=== PATIENT | female | born 1945 | race Caucasian/White ===

== ENCOUNTER 2018-02-03 12:13 | Outpatient (CLI) | payer MEDICARE, SELFPAY ==
--- NOTE | 2018-02-03 11:11 | DI.RAD_ITS ---
SYMPTOM/DIAGNOSIS: FOOT PAIN M79.671 RIGHT FOOT: There is no evidence of a fracture or dislocation. Mild degenerative changes involving interphalangeal joints are identified. Minimal DJD involving the intertarsal and tarsal metatarsal joints are noted and there is a tiny calcaneal spur
== END 2018-02-03 12:33 ==
PROVIDERS: PCP Family Medicine; Visit Provider Internal Medicine
DX: M79.671 Pain in right foot (principal); M19.071 Primary osteoarthritis, right ankle and foot; M77.31 Calcaneal spur, right foot
CPT/HCPCS: 73630

== ENCOUNTER 2018-05-25 12:40 | Outpatient (CLI) | payer MEDICARE, SELFPAY ==
[2018-05-25 14:05] LABS: Anion Gap 8.1 mmol/L (3-11); BUN 21 mg/dL (7-18); CO2 28.9 mmol/L (21.0-32.0); CREATININE 0.94 mg/dL (0.55-1.02); Calcium 9.4 mg/dL (8.5-10.1); Chloride 104 mmol/L (98-107); Cholesterol 192 mg/dL (50-200); Estimated GFR 58.21 (mL/min/1.73m2); Glucose 87 mg/dL (70-100); HDL Cholesterol 71 mg/dL (40-60); LDL CHOLESTEROL 84 mg/dL (<100); Potassium 3.7 mmol/L (3.5-5.1); Sodium 141 mmol/L (136-145); Triglyceride 103 mg/dL (30-150)
== END 2018-05-25 13:00 ==
PROVIDERS: PCP Internal Medicine; Visit Provider Internal Medicine
DX: I10 Essential (primary) hypertension (principal); R73.01 Impaired fasting glucose; E11.9 Type 2 diabetes mellitus without complications
CPT/HCPCS: 36415; 80048; 80061; 83721

== ENCOUNTER 2019-10-31 01:32 | Outpatient (CLI) | payer MEDICARE, SELFPAY ==
[2019-10-31 09:57] LABS: Anion Gap 8.7 mmol/L (3-11); BUN 20 mg/dL (7-18); CO2 27.3 mmol/L (21.0-32.0); CREATININE 1.08 mg/dL (0.55-1.02); Calculated LDL 167 mg/dL (<100); Chloride 102 mmol/L (98-107); Cholesterol 265 mg/dL (<200); Estimated GFR 49.33 (mL/min/1.73m2); Glucose 99 mg/dL (74-106); HDL Cholesterol 53 mg/dL (40-60); Potassium 4.3 mmol/L (3.5-5.1); Sodium 138 mmol/L (136-145); Triglyceride 225 mg/dL (<150)
== END 2019-10-31 01:52 ==
PROVIDERS: PCP Internal Medicine; Visit Provider Internal Medicine
DX: I10 Essential (primary) hypertension (principal)
CPT/HCPCS: 36415; 80048; 80061

== ENCOUNTER 2019-11-08 01:38 | Outpatient (CLI) | payer MEDICARE, SELFPAY ==
--- NOTE | 2019-11-08 11:15 | DI.DEXA_ITS ---
EXAM: XR DEXA BONE DENSITY W/WO FABI CLINICAL HISTORY: screening for osteoporosis, Z78.0 TECHNIQUE: COMPARISON: No exams were available for comparison FINDINGS: Lateral Spine Image: Unremarkable. No compression deformities identified. Left hip: Total T-Score: -1.8 Total Z-Score: 0.1 T- and Z-scores: Findings consistent with osteopenia and an increased fracture risk. Lumbar Spine: Total T-Score: -1.9 Total Z-Score: 0.5 T- and Z-scores: Findings consistent with osteopenia and increased fracture risk. IMPRESSION: No evidence of osteoporosis.
== END 2019-11-08 01:58 ==
PROVIDERS: PCP Internal Medicine; Visit Provider Internal Medicine
DX: M85.88 Other specified disorders of bone density and structure, other site (principal); Z78.0 Asymptomatic menopausal state
CPT/HCPCS: 77080

== ENCOUNTER 2019-12-06 01:12 | Outpatient (CLI) | payer MEDICARE, SELFPAY ==
--- NOTE | 2019-12-06 06:45 | DI.MAMMO_ITS ---
EXAM: MAMMO SCREENING CLINICAL HISTORY: screening, TECHNIQUE: Mammograms were interpreted according to the usual protocol including computer analysis w [employer] CAD system, tomosynthesis and C-view imaging. COMPARISON: 2009 FINDINGS: The breasts are composed of heterogeneously dense fibroglandular densities, Breast Density category C . No suspicious masses or suspicious microcalcifications are seen. Vascular calcifications are noted. No skin thickening or abnormal axillary lymph nodes are seen. There has been no significant change from prior exam. IMPRESSION: BI-RADS Category 1: Negative mammogram. Yearly screening mammography is recommended. Breast Density Category C, heterogeneously dense tissue which decreases the sensitivity of the mammog toma. The mammogram demonstrates the patient's breast tissue is dense. Dense breast tissue is very common a nd is not abnormal but dense breast tissue can make it harder to find cancer on a mammogram. Also, de nse breast tissue may increase breast cancer risk. This information about the result of the mammogram report was provided to the patient to raise their awareness. Use this report when you speak with the patient about their risks for breast cancer, which includes their family history. At that time, you may recommend additional screening tests (Ultrasound or MRI) as they might be useful based on their r isk. A negative radiographic report should not delay biopsy if a dominant or clinically suspicious mass is present. Up to ten percent of cancers are not identified on mammography. A negative report may reinforce clinical impression. Adenosis and dense breasts may obscure an underlying neoplasm. False positive reports average 6 to 10%.
== END 2019-12-06 01:32 ==
PROVIDERS: PCP Internal Medicine; Visit Provider Internal Medicine
DX: Z12.31 Encounter for screening mammogram for malignant neoplasm of breast (principal); R92.2 Inconclusive mammogram; R92.1 Mammographic calcification found on diagnostic imaging of breast
CPT/HCPCS: 77063; 77067

== ENCOUNTER 2021-01-09 02:49 | Outpatient (CLI) | payer MEDICARE, SELFPAY ==
[2021-01-09 09:04] LABS: Anion Gap 9.8 mmol/L (3-11); BUN 24 mg/dL (7-18); CO2 28.2 mmol/L (21.0-32.0); CREATININE 1.1 mg/dL (0.55-1.02); Calcium 9.5 mg/dL (8.5-10.1); Calculated LDL 126 mg/dL (<100); Chloride 106 mmol/L (98-107); Cholesterol 208 mg/dL (<200); Estimated GFR 48.16 (mL/min/1.73m2); Glucose 99 mg/dL (74-106); HDL Cholesterol 56 mg/dL (40-60); Potassium 4.1 mmol/L (3.5-5.1); Sodium 144 mmol/L (136-145); Triglyceride 130 mg/dL (<150)
== END 2021-01-09 02:50 | disposition home or self-care (01) ==
LOC: LBO 02:49
PROVIDERS: PCP Internal Medicine; Visit Provider Internal Medicine
DX: I10 Essential (primary) hypertension (principal); E78.00 Pure hypercholesterolemia, unspecified
CPT/HCPCS: 36415; 80048; 80061

== ENCOUNTER → 2021-04-11 09:28 | Outpatient (BNVA) | payer MEDICARE, SELFPAY | PROVIDERS: PCP Internal Medicine; Referring Provider Internal Medicine; Visit Provider Psychiatry & Neurology Neurology | DX: H53.9 Unspecified visual disturbance (principal); R51.9 Headache, unspecified; I10 Essential (primary) hypertension | CPT/HCPCS: 99203 ==

== ENCOUNTER 2022-01-08 02:39 | Outpatient (CLI) | payer MEDICARE, SELFPAY ==
[2022-01-08 15:27] LABS: Anion Gap 10.7 mmol/L (3-11); BUN 20 mg/dL (7-18); CO2 25.3 mmol/L (21.0-32.0); CREATININE 1.1 mg/dL (0.55-1.02); Calcium 9.2 mg/dL (8.5-10.1); Calculated LDL 103 mg/dL (<100); Chloride 105 mmol/L (98-107); Cholesterol 204 mg/dL (<200); Estimated GFR 51.43 (mL/min/1.73m2); Glucose 103 mg/dL (74-106); HDL Cholesterol 62 mg/dL (40-60); Potassium 3.6 mmol/L (3.5-5.1); Sodium 141 mmol/L (136-145); Triglyceride 195 mg/dL (<150)
== END 2022-01-08 02:40 | disposition home or self-care (01) ==
LOC: LBO 02:39
PROVIDERS: PCP Internal Medicine; Visit Provider Internal Medicine
DX: E78.00 Pure hypercholesterolemia, unspecified (principal); I10 Essential (primary) hypertension
CPT/HCPCS: 36415; 80048; 80061

== ENCOUNTER 2023-07-24 09:03 | Outpatient (REF) | payer MEDICARE, SELFPAY ==
[2023-07-24 15:18] LABS: Abs Immature Grans 0.01 10^3/uL (0.0-0.06); Absolute Basophil Count 0.07 10^3/uL (0.0-0.2); Absolute Eosinophil Count 0.13 10^3/uL (0.0-0.7); Absolute Lymphocyte Count 1.22 10^3/uL (1.2-3.4); Absolute Monocyte Count 0.39 10^3/uL (0.1-0.8); Absolute Neutrophil Count 3.02 10^3/uL (1.2-6.7); Basophils % 1.4; Eosinophils % 2.7; HCT 43.8 % (36.0-46.0); HGB 14.7 g/dL (11.2-15.7); Immature Grans % 0.2; Lymphocytes % 25.2; MCH 30.1 pg (27.0-33.0); MCHC 33.6 % (32.0-36.0); MCV 90 fL (80-95); MPV 9.6 fL (8.0-11.0); Monocytes % 8.1; Neutrophils % 62.4; Platelet Count 204 10^3/uL (130-400); RBC 4.89 10^6/uL (3.93-5.22); RDW 12.6 % (11.7-14.6); RDW-SD 41.2 fL; WBC 4.84 10^3/uL (4.4-10.8)
[2023-07-24 15:48] LABS: ALT 22 U/L (14-59); AST 22 U/L (15-37); Albumin 3.8 g/dL (3.4-5.0); Alkaline Phosphatase 71 U/L (46-116); Anion Gap 9.7 mmol/L (3-11); BUN 21 mg/dL (7-18); Bilirubin, Total 0.7 mg/dL (0.2-1.0); CO2 27.3 mmol/L (21.0-32.0); Calcium 9.4 mg/dL (8.5-10.1); Calculated LDL 138 mg/dL (<100); Chloride 104 mmol/L (98-107); Cholesterol 228 mg/dL (<200); Estimated GFR 56.95 (mL/min/1.73m2); Glucose 108 mg/dL (74-106); HDL Cholesterol 67 mg/dL (40-60); Sodium 141 mmol/L (136-145); Total Protein 7.4 g/dL (6.4-8.2); Triglyceride 115 mg/dL (<150)
[2023-07-24 16:37] LABS: Vitamin D 25 Total 32.8 ng/mL (30-100)
== END 2023-07-24 09:04 | disposition home or self-care (01) ==
LOC: NCHCN 09:03
PROVIDERS: Visit Provider Nurse Practitioner Family
DX: Z00.00 Encounter for general adult medical examination without abnormal findings (principal)
CPT/HCPCS: 80053; 80061; 82306; 85025

== ENCOUNTER 2024-11-17 12:41 | Outpatient (REF) | payer MEDICARE, SELFPAY ==
[2024-11-17 19:06] LABS: Abs Immature Grans 0.03 10^3/uL (0.0-0.06); HCT 39.5 % (36.0-46.0); HGB 13.5 g/dL (11.2-15.7); Immature Grans % 0.3 %; MCH 30.2 pg (27.0-33.0); MCHC 34.2 % (32.0-36.0); MCV 88 fL (80-95); MPV 9.7 fL (8.0-11.0); Platelet Count 244 10^3/uL (130-400); RBC 4.47 10^6/uL (3.93-5.22); RDW 11.9 % (11.7-14.6); RDW-SD 38.3 fL; WBC 9.14 10^3/uL (4.4-10.8)
[2024-11-17 19:42] LABS: ALT 17 U/L (14-59); AST 11 U/L (15-37); Albumin 3.9 g/dL (3.4-5.0); Alkaline Phosphatase 93 U/L (46-116); Anion Gap 7.9 mmol/L (3-11); BUN 22 mg/dL (7-18); Bilirubin, Total 0.8 mg/dL (0.2-1.0); CO2 30.1 mmol/L (21.0-32.0); Calcium 9.5 mg/dL (8.5-10.1); Chloride 100 mmol/L (98-107); Estimated GFR 64.23 (mL/min/1.73m2); Glucose 119 mg/dL (74-106); Magnesium 2.4 mg/dL (1.8-2.4); Potassium 4.0 mmol/L (3.5-5.1); Sodium 138 mmol/L (136-145); TSH 0.70 uIU/mL (0.36-3.74); Total Protein 7.5 g/dL (6.4-8.2); Vitamin B12 385 pg/mL (193-986)
[2024-11-17 19:57] LABS: Creatine Kinase 53 U/L (26-192)
[2024-11-18 19:15] LABS: Folate 16.1 ng/mL (See Note)
[2024-11-21 10:57] LABS: Lyme Ab w Rflx to Lyme Confirm Negative (Negative)
== END 2024-11-17 12:42 | disposition home or self-care (01) ==
LOC: NCHCN 12:41
PROVIDERS: Visit Provider Family Medicine
DX: M79.18 Myalgia, other site (principal); W57.XXXA Bitten or stung by nonvenomous insect and other nonvenomous arthropods, initial encounter
CPT/HCPCS: 80053; 82550; 82607; 82746; 83735; 84443; 85025; 86618

== ENCOUNTER 2024-12-05 12:20 | Outpatient (CLI) | payer MEDICARE, SELFPAY ==
[2024-12-05 12:37] LABS: Abs Immature Grans 0.23 10^3/uL (0.0-0.06); HCT 39.4 % (36.0-46.0); HGB 12.9 g/dL (11.2-15.7); Immature Grans % 1.7 %; MCH 28.8 pg (27.0-33.0); MCHC 32.7 % (32.0-36.0); MCV 88 fL (80-95); MPV 8.5 fL (8.0-11.0); Platelet Count 348 10^3/uL (130-400); RBC 4.48 10^6/uL (3.93-5.22); RDW 12.0 % (11.7-14.6); RDW-SD 38.4 fL; WBC 13.46 10^3/uL (4.4-10.8)
[2024-12-05 12:39] LABS: ESR 23 mm/hr (0-30)
[2024-12-05 13:05] LABS: C-Reactive Protein 0.99 mg/dL (<or=0.5)
[2024-12-08 16:50] LABS: B. miyamotoi PCR Negative (Negative); Babesia divergens/MO-1 Negative (Negative); Ehrlichia muris eauclairensis Negative (Negative)
== END 2024-12-05 12:21 | disposition home or self-care (01) ==
LOC: LBO 12:21
PROVIDERS: Visit Provider Nurse Practitioner Family
DX: M25.50 Pain in unspecified joint (principal)
CPT/HCPCS: 36415; 85652; 86200; 87798; 85025; 86038; 86140; 86431

== ENCOUNTER 2025-01-12 18:30 | Outpatient (REF) | payer MEDICARE, SELFPAY ==
[2025-01-12 20:52] LABS: Glucose Negative (Negative)
[2025-01-12 21:01] LABS: C & S Indicated? No
== END 2025-01-12 18:31 | disposition home or self-care (01) ==
LOC: NCHCN 18:30
PROVIDERS: PCP Nurse Practitioner Family; Visit Provider Nurse Practitioner Family
DX: M25.50 Pain in unspecified joint (principal)
CPT/HCPCS: 81003; 81015; 86160; 86225

== ENCOUNTER 2025-03-02 03:53 | Outpatient (CLI) | payer MEDICARE, SELFPAY ==
--- NOTE | 2025-03-02 | DI.DEXA_ITS ---
Exam(s) XR DEXA BONE DENSITY W/WO FABI EXAM: XR DEXA BONE DENSITY W/WO FABI CLINICAL HISTORY: LONGTERM USE STEROIDS Z79.52 TECHNIQUE: [email or web address] C densitometer analysis of left hip, lumbar spine and left forearm. Lateral survey image of the thoracic and lumbar spine. COMPARISON: CR XR DEXA BONE DENSITY W/WO FABI from 11/08/2019 FINDINGS: Lateral view of the thoracic and lumbar spine shows no evidence of compression fractures. Scoliosis and degenerative changes are present in the lumbar spine. Bone mineral density measurements of the lumbar spine correspond to a total T- score of -1.9, in the osteopenic range. This is unchanged from 2020. Bone mineral density measurements of the left hip correspond to a total T-score of -1.9. This represents a 2.6 percent decrease from 2020 but not statistically significant. The femoral neck T-score is -1.9, in the osteopenic range . Theleft forearm bone mineral density measurements correspond to a T-score of the distal 3rd of -4.3, in the osteoporotic range. This represents a 9.4 percent decrease from 2020.. IMPRESSION: Osteopenia of the spine and hip. Osteoporosis of the forearm.
== END 2025-03-02 04:13 ==
PROVIDERS: PCP Nurse Practitioner Family; Visit Provider Nurse Practitioner Acute Care
DX: M85.88 Other specified disorders of bone density and structure, other site (principal); Z79.52 Long term (current) use of systemic steroids; M80.032A Age-related osteoporosis with current pathological fracture, left forearm, initial encounter for fracture
CPT/HCPCS: 77080

== ENCOUNTER 2025-03-13 03:55 | Outpatient (CLI) | payer MEDICARE, SELFPAY ==
[2025-03-13 09:36] LABS: ESR 2 mm/hr (0-30)
[2025-03-13 10:35] LABS: C-Reactive Protein < 0.50 mg/dL (<or=0.5)
== END 2025-03-13 03:56 | disposition home or self-care (01) ==
LOC: LBO 03:55
PROVIDERS: PCP Nurse Practitioner Family; Visit Provider Nurse Practitioner Acute Care
DX: M35.3 Polymyalgia rheumatica (principal)
CPT/HCPCS: 36415; 85652; 86140